=== PATIENT | male | born 1980 | race Hispanic/Latino ===

== ENCOUNTER → 2018-03-24 | Day surgery (SDC) | payer OTHER ==
[2008-01-25 16:13] VITALS: BP 149/76
--- NOTE | 2018-03-24 18:49 | Operative Report ---
Operative/Inv Procedure Report Surgery Date: 03/24/18 Name of Procedure: circumcision Pre-Operative Diagnosis: phimosis Post-Operative Diagnosis: same Estimated Blood Loss: less than 50ml Surgeon/Lead Pl Sql Developer: Bautista Landry MD Anesthesia: laryngeal mask airway, block Specimens: foreskin Complications: none Operative/Procedure Note Note: The patient was taken to the operating room and placed on the OR table in supine position. With the patient awake, timeout was performed in order to confirm the patient's identity, procedure, antibiotics, anesthesia, and other pertinent perioperative information. After adequate anesthesia and antibiotics, the patient was then placed frog- legged in supine position. The patient was then draped, and prepped, in the usual surgical fashion with the foreskin retracted as best as possible. Through the phimotic foreskin the glans, and inner precuce was irrigated with Betadine solution. A penile block at the base was performed,using 10ml of 2% lidocaine without epinephrine. A straight clamp was placed on the dorsal portion of the phimotic foreskin avoiding the glans. After waiting 10 minutes, the clamp was removed and the crushed foreskin was then incised using Bovie cautery on a cutting current. At this point when the dorsal slit was made the foreskin was then easily retracted over the glans. A circumferential incision along following the base of the glans/coronal sulcus, using a 15 blade knife was then performed approximately 1-1/2 cm below the coronal sulcus. The incision was carried down to the Brush's fascia using Bovie cautery, and insuring good hemostasis with spot cauterization. The foreskin was then allowed to retract once again to its anatomic position. A 15 blade knife was used once again to make a circumferential incision on the external foreskin, following the coronal sulcus. This outer foreskin circumferential incision was then extended to the Brush's fascia, using coag-current on the Bovie, and Spot cauterizing vessels in order to achieve good hemostasis. The excess foreskin sleeve was then transected dorsally using the Bovie cautery. Using a Patti clamp on on the foreskin sleeve, the foreskin was rolled onto the clamp and simultaneously cauterizing the subcutaneous area over tissue in order to excise the foreskin from the penis. Once this was complete, the penis was copiously irrigated with sterile water, and once again Spot cauterization was performed in order to achieve good hemostasis. With both the inner pink foreskin and penile shaft skin aligned appropriately, the purpose and penile shaft were reapproximated using interrupted 2-0 chromic sutures. Once again the area was copiously irrigated, and gentle pressure was placed on the incision in order to ensure good hemostasis. Bacitracin ointment was copiously applied to the incision, and sterile gauze was wrapped around the incision gently. The patient was then placed in support underwear and transferred to the recovery room in satisfactory condition. All sponge needle and instrument count were correct at the end of the case. The patient tolerated procedure well and was discharged home with a course of antibiotics and pain medication. He is to follow up in 2-4 weeks time for postoperative check. Discharge Disposition: PACU CC: Bautista Landry MD
== END ==
LOC: STS 01:16
DX: N47.1 Phimosis (principal); E11.9 Type 2 diabetes mellitus without complications; Z79.84 Long term (current) use of oral hypoglycemic drugs; I10 Essential (primary) hypertension
CPT/HCPCS: 36415; 93005; 93010; J0131; J1100; J1885; J2001; J2250; J2405